=== PATIENT | female | born 1985 | race Caucasian/White ===

== ENCOUNTER 2016-12-12 16:20 | Emergency (ER) | payer OTHER ==
[~2016-12-12] VITALS: Ht 167.6 cm; Wt 54.0 kg
[~2016-12-12 16:20] MED LIST: INDOCIN25 MG PO; MOTRIN600 MG PO; NOHOMEMEDS; NORCO 5/3251 TABLET PO; PEN-VEE K,VEET500 MG PO; PERCOCET 5/31 TABLET PO; PREDNISONE20 MG PO
[2016-12-12 17:29] LABS: HEMATOCRIT 42.3 % (36.0-46.0); MCV 88.1 FL (83-99); MEAN PLAT.VOLUME 10.4 uM^3 (9.5-12.4); PLATELET COUNT 197 K/uL (156-360); RBC DIS.WIDTH-CV 12.5 % (11.8-14.6); WHITE BLOOD COUNT 8.8 K/uL (4.1-10.2)
[2016-12-12 17:41] LABS: CHLORIDE 104 mEq/L (99-109); POTASSIUM 4.1 mEq/L (3.7-5.4); SODIUM 139 mEq/L (136-147)
[2016-12-12 17:43] LABS: GLUCOSE 91 mg/dL (70-99)
[2016-12-12 17:44] LABS: ANION GAP 9 MEQ/L (2-14)
[2016-12-12 17:46] LABS: TROP-I INTERPRETATION NEGATIVE; TROPONIN-I < 0.01 ng/mL (0.0-0.30)
[2016-12-12 17:47] LABS: GFR ESTIMATE (CALCULATED) > 59 mL/min/
[2016-12-12 17:48] LABS: UREA NITROGEN (BUN) 13 mg/dL (9-23)
[2016-12-12 18:56] LABS: D-DIMER ELISA 0.59 mg/L FEU (< 0.57)
[2016-12-12 19:03] LABS: QUANTITATIVE HCG < 4.0 MIU/ML
[2016-12-12] MEDS ORDERED: ATIVAN1 MG PO (22:50)
[2016-12-12 23:01] VITALS: BP 120/76
== END 2016-12-12 23:01 | disposition home or self-care (01) ==
LOC: EME 16:20
PROVIDERS: Physician Assistant
DX: R07.9 Chest pain, unspecified (principal); F17.200 Nicotine dependence, unspecified, uncomplicated
CPT/HCPCS: 71020; 71275; 80048; 84484; 84702; 85027; 85379; 93005; 99281; 99285

== ENCOUNTER 2017-03-25 15:29 | Emergency (ER) | payer SELFPAY ==
[~2017-03-25] VITALS: Ht 165.1 cm; Wt 48.0 kg
[~2017-03-25 15:29] MED LIST changes: +ATIVAN1 MG PO
[2017-03-25 15:31] VITALS: BP 115/85
== END 2017-03-25 16:51 | disposition left against medical advice (07) ==
LOC: EME 15:29
DX: F11.23 Opioid dependence with withdrawal (principal); Z53.21 Procedure and treatment not carried out due to patient leaving prior to being seen by health care provider